=== PATIENT | female | born 1955 | race Caucasian/White ===

== ENCOUNTER → 2024-01-23 13:04 | Outpatient (REF) | payer MEDICARE, SELFPAY | LOC: HWWDC 13:04 | PROVIDERS: ATTENDING PHYSICIAN Obstetrics & Gynecology; FAMILY PHYSICIAN Family Medicine | DX: Z12.31 Encounter for screening mammogram for malignant neoplasm of breast (principal) | CPT/HCPCS: 77063; 77067 ==

== ENCOUNTER 2024-06-22 05:47 | Outpatient (RCR) | payer MEDICARE, SELFPAY | END 2024-06-22 23:59 | disposition home or self-care (01) | LOC: RPT 05:47 | PROVIDERS: ATTENDING PHYSICIAN Family Medicine; FAMILY PHYSICIAN Family Medicine | DX: S46.812D Strain of other muscles, fascia and tendons at shoulder and upper arm level, left arm, subsequent encounter (principal); M25.512 Pain in left shoulder; Z73.6 Limitation of activities due to disability; R20.2 Paresthesia of skin; M62.81 Muscle weakness (generalized) | CPT/HCPCS: 97110; 97162 ==

== ENCOUNTER 2024-07-20 14:13 | Outpatient (RCR) | payer MEDICARE, SELFPAY | END 2024-07-20 23:59 | disposition home or self-care (01) | LOC: RPT 14:13 | PROVIDERS: ATTENDING PHYSICIAN Family Medicine; FAMILY PHYSICIAN Family Medicine | DX: M25.512 Pain in left shoulder (principal); S46.812D Strain of other muscles, fascia and tendons at shoulder and upper arm level, left arm, subsequent encounter; Z73.6 Limitation of activities due to disability | CPT/HCPCS: 97010; 97110; 97140 ==

== ENCOUNTER 2024-07-27 12:58 | Outpatient (RCR) | payer MEDICARE, SELFPAY | END 2024-07-27 23:59 | disposition home or self-care (01) | LOC: RPT 12:58 | PROVIDERS: ATTENDING PHYSICIAN Family Medicine; FAMILY PHYSICIAN Family Medicine | DX: M25.512 Pain in left shoulder (principal); S46.812D Strain of other muscles, fascia and tendons at shoulder and upper arm level, left arm, subsequent encounter; Z73.6 Limitation of activities due to disability; R20.2 Paresthesia of skin; M62.81 Muscle weakness (generalized); X58.XXXD Exposure to other specified factors, subsequent encounter | CPT/HCPCS: 97010; 97110 ==

== ENCOUNTER → 2025-02-08 11:37 | Outpatient (REF) | payer MEDICARE, SELFPAY | LOC: HWRAD 11:37 | PROVIDERS: ATTENDING PHYSICIAN Family Medicine | DX: E04.2 Nontoxic multinodular goiter (principal) | CPT/HCPCS: 76536 ==